=== PATIENT | male | born 1970 | race Hispanic/Latino ===

== ENCOUNTER 2016-08-24 05:48 | Emergency (ER) | payer SELFPAY ==
[~2016-08-24] VITALS: Ht 167.6 cm; Wt 77.1 kg
[~2016-08-24 05:48] MED LIST: FOLIC ACID 1 MG PO; HYDREA PO; Theragran Vitamins PO; VITAB121000 PO; VITAMIN B1100 MG PO; VITAMIN D1000 IU PO
[2016-08-24 06:57] VITALS: BP 133/77
--- NOTE | 2016-08-24 07:19 | ED UPPER/LOWER EXTREMITY COMPL ---
History of Present Illness General Chief Complaint: Lower Extremity Problems Stated Complaint: S/P FALL LAST PM, "LUMP ON L HIP" Source: patient Exam Limitations: no limitations Vital Signs & Intake/Output Vital Signs & Intake/Output Vital Signs Date Time Temp Pulse Resp B/P Pulse O2 O2 Flow FiO2 Ox Delivery Rate 08/24 0657 98.3 104 18 133/77 96 Allergies Coded Allergies: NO KNOWN ALLERGIES (08/27/16) Reconcile Medications Hydrocodone/Acetaminophen ([place] 5-325 Tablet) 5 MG-325 MG TABLET 1-2 TAB PO Q4-6 PRN PRN PAIN Ibuprofen 800 MG TABLET 1 TAB PO TID PRN PAIN Triage Note: PT C/O LEFT HIP PAIN AND BUMP ON HIP AFTER SLIPPING ON ICE AND LANDING ON LEFT SIDE LAST NIGHT. PT DENIES HITTING HEAD. PT AMBULATORY BUT REPORTS PAIN WORSE WHILE AMBULATING. Triage Nurses Notes Reviewed? yes Onset: Abrupt Duration: day(s): (1) Timing: single episode today Severity: moderate Pain/Injury Location: Left: Hip. Method of Injury: fall Associated Symptoms: BRUISING HPI: This is a 46-year-old male with history of thrombocytosis on daily aspirin and presents to the ER for Chief complaint of left hip pain and swelling status post slip and fall of ice yesterday. Did not hit any other part of his body. He takes a daily aspirin which she took this morning. Aspirin is not helping for pain. He shouldn't states that he followed up previously with a data programmer but currently doesn't have insurance and doesn't see a doctor. Denies any head trauma or injury. He denies any chest pain or shortness of breath. No lightheadedness or dizziness. He states pain is worse with ambulation. Past History Travel History Traveled to [place] past 21 day No Medical History Any Pertinent Medical History? see below for history Blood Disorders: PLATELET DISORDER THROMBOCYTOSIS History of MRSA: No History of VRE: No History of CDIFF: No Surgical History Surgical History: non-contributory Psychosocial History Who do you live with Significant Other Services at Home None What is your primary language Italian Tobacco Use: Never used ETOH Use: heavy use Family History Family History, If Any: Relation not specified for: *No pertinent family history Hx Contributory? No Review of Systems Review of Systems Constitutional: Denies: chills, fever, malaise, weakness. EENTM: Reports: no symptoms. Respiratory: Denies: cough, short of breath. Cardiovascular: Denies: chest pain, palpitations. Gastrointestinal/Abdominal: Reports: no symptoms. Genitourinary: Reports: no symptoms. Musculoskeletal: Reports: no symptoms. Skin: Reports: no symptoms. Neurological/Psychological: Reports: no symptoms. Hematologic/Endocrine: Reports: bruising. Denies: bleeding, polyuria, polydipsia. Immunological: Denies: splenectomy. All Other Systems: Reviewed and Negative Physical Exam Physical Exam General Appearance: well developed/nourished, alert, awake, anxious, mild distress Head: atraumatic Eyes: Bilateral: PERRL, EOMI. Ears, Nose, Throat: normal pharynx, normal ENT inspection, hearing grossly normal Neck: normal inspection, supple Cardiovascular/Respiratory: regular rate/rhythm Back: normal inspection Leg Left: normal range of motion, normal inspection Leg Right: normal range of motion, normal inspection Hip Left: swelling, tenderness, soft tissue tenderness Hip Right: normal range of motion, normal inspection Knee Left: normal range of motion, normal inspection Foot Left: normal inspection, normal range of motion Foot Right: normal inspection, normal range of motion Neurologic/Tendon: normal sensation, normal motor functions, normal tendon functions Skin: intact, normal color, warm/dry Lymphatic: no anterior cervical byron Diagram Legs Front/Back 1) Hematoma Progress Differential Diagnosis: fracture, HEMATOMA Plan of Care: Orders Procedure Date/time Status CBC WITHOUT DIFFERENTIAL 08/24 714 Complete Laboratory Tests 08/24/16 0720: CBC w Diff NO MAN DIFF REQ, RBC 4.58 L, MCV 90.7, MCH 30.7, RDW 13.9, MPV 7.1 L, Gran % 70.9, Lymphocytes % 18.9 L, Monocytes % 8.3, Eosinophils % 1.4, Basophils % 0.5, Absolute Granulocytes 6.0, Absolute Lymphocytes 1.6, Absolute Monocytes 0.7 H, Absolute Eosinophils 0.1, Absolute Basophils 0, PUBS MCHC 33.9 Diagnostic Imaging: Viewed by Me: Radiology Read. Discussed w/RAD: Radiology Read. Radiology Impression: PATIENT: GWEN GONSALEZ PRESENT AGE: 46 PATIENT ACCOUNT NO: [id number] : 71 LOCATION: [facility] ORDERING PHYSICIAN: RACHELL DE LA GARZA MD SERVICE DATE: 08/24/16 EXAM TYPE: RAD - XRY -HIP 2-3 VIEWS, LEFT EXAMINATION: XR HIP, LEFT CLINICAL INFORMATION: Left hip pain, fall. Hematoma COMPARISON: None TECHNIQUE: AP and frog-leg lateral views of the left hip FINDINGS: Bones and soft tissues are normal. No fracture. Alignment is anatomic. Hip joint space is maintained. IMPRESSION: No acute osseous abnormality of the left hip. DICTATED BY: NOBLE REYES MD DATE/TIME DICTATED:08/24/16750 [facility] NURSE:LELA DATE/TIME TRANSCRIBED:750 CONFIDENTIAL, DO NOT COPY WITHOUT APPROPRIATE AUTHORIZATION. 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 Ice, rest and elevate the leg. Return if worse. Departure Forms: Customer Survey General Discharge Information
[2016-08-24 07:35] LABS: ABSOLUTE BASOPHIL COUNT 0 /CUMM (0.0-0.2); ABSOLUTE EOSINOPHIL COUNT 0.1 /CUMM (0.0-0.7); ABSOLUTE LYMPH COUNT 1.6 /CUMM (1.2-3.4); ABSOLUTE MONOCYTE COUNT 0.7 /CUMM (0.10-0.60); BASOPHIL % 0.5 % (0.0-2.0); EOSINOPHIL % 1.4 % (0-5); GRANULOCYTE % 70.9 % (42.2-75.2); HEMATOCRIT 41.5 % (42-52); MEAN CORPUSCULAR HGB 30.7 PG (27.0-31.0); MEAN CORPUSCULAR HGB CONC 33.9 G/DL (33.0-37.0); MEAN CORPUSCULAR VOLUME 90.7 FL (80.0-94.0); MEAN PLATELET VOLUME 7.1 FL (7.4-10.4); RBC DISTRIBUTION WIDTH 13.9 % (11.5-14.5); RED BLOOD CELL CT 4.58 /CUMM (4.70-6.10); WHITE BLOOD CELL COUNT 8.5 /CUMM (4.8-10.8)
[2016-08-24 07:55] LABS: PLATELET COUNT 1104 /CUMM (130-400)
--- NOTE | 2016-08-24 07:59 | RADIOLOGY REPORT ---
EXAMINATION: XR HIP, LEFT CLINICAL INFORMATION: Left hip pain, fall. Hematoma COMPARISON: None TECHNIQUE: AP and frog-leg lateral views of the left hip FINDINGS: Bones and soft tissues are normal. No fracture. Alignment is anatomic. Hip joint space is maintained. IMPRESSION: No acute osseous abnormality of the left hip.
== END 2016-08-24 08:09 ==
LOC: ERH 05:48
PROVIDERS: Emergency Medicine
DX: S70.02XA Contusion of left hip, initial encounter (principal); D47.3 Essential (hemorrhagic) thrombocythemia
CPT/HCPCS: 73502-LT

== ENCOUNTER 2016-08-27 07:46 | Emergency (ER) | payer SELFPAY ==
[~2016-08-27] VITALS: Ht 167.6 cm; Wt 77.1 kg
[2016-08-27 07:49] VITALS: BP 125/84
[2016-08-27] MEDS ORDERED: NORCO 5-325 TA1 EACH PO (08:04)
[2016-08-27] MEDS ORDERED: IBUPROFEN800 M1 PO (08:04)
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
== END 2016-08-27 08:13 ==
LOC: ERH 07:46
DX: S70.02XA Contusion of left hip, initial encounter (principal); S30.0XXA Contusion of lower back and pelvis, initial encounter; W00.0XXA Fall on same level due to ice and snow, initial encounter
CPT/HCPCS: 96372; J1885

== ENCOUNTER 2016-09-20 13:01 | Emergency (ER) | payer OTHER ==
[~2016-09-20 13:01] MED LIST changes: +IBUPROFEN800 M1 PO; +NORCO 5-325 TA1 EACH PO
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
[2016-09-20 14:30] VITALS: BP 153/89
== END 2016-09-20 14:40 ==
LOC: ERH 13:01
DX: F10.129 Alcohol abuse with intoxication, unspecified (principal)